=== PATIENT | male | born 1970 | race Two or more races ===

== ENCOUNTER 2018-07-23 18:01 | Emergency (ER) | payer OTHER ==
[~2018-07-23] VITALS: Ht 170.2 cm; Wt 68.0 kg
[2018-07-23] MEDS ORDERED: SODIUM CHLORIDE 0.9% 1,000 ML IV ONE ×2 (19:18→21:57)
[2018-07-23] MEDS ORDERED: ONDANSETRON HCL 4MG/2ML INJ IV STA (19:18)
[2018-07-23] MEDS ORDERED: MORPHINE SULFATE 4 MG/ML CPJ (NOT FOR IM USE) IV STA (19:18)
[2018-07-23 19:38] LABS: CHLORIDE 109 mEq/L (98-107)
[2018-07-23 19:43] LABS: BASOPHILS % 0.1 % (0.0-2.0); HEMATOCRIT. 45.4 % (42.0-52.0); HEMOGLOBIN. 15.1 g/dL (14.0-18.0); MEAN CORPUSCULAR HEMOGLOBIN 29.9 pg (28.0-32.0); MEAN CORPUSCULAR VOLUME 89.9 fL (80.0-94.0); MEAN PLATELET VOLUME 8.5 fl (7.4-10.4); MONOCYTES % 3.7 % (2.0-8.0); NEUTROPHILS % 88.2 % (40.0-76.0); PLATELET 237 x1000/uL (130-400); RED BLOOD CELL COUNT 5.05 mill/uL (4.7-6.1); RED CELL DISTRIBUTION WIDTH 14.2 % (11.6-14.6)
[2018-07-23] MEDS ORDERED: IOHEXOL-300 100 ML BOTTLE ONE (20:23)
[2018-07-23 21:47] LABS: CLARITY URINE CLEAR (CLEAR); COLOR URINE YELLOW (YELLOW); KETONES URINE 1+ (NEGATIVE); LEUKOCYTE ESTERASE URINE NEGATIVE (NEGATIVE); NITRITE URINE NEGATIVE (NEGATIVE); OCCULT BLOOD URINE 3+ (NEGATIVE); PH URINE 7.5 (4.5-8.0); PROTEIN URINE NEGATIVE (NEGATIVE); UROBILINOGEN URINE 0.2 E.U./dL (0.2-1.0)
[2018-07-23] MEDS ORDERED: KETOROLAC 30MG/ML VIAL IV STA (21:57)
[2018-07-23 23:31] VITALS: BP 153/72
== END 2018-07-23 23:32 | disposition home or self-care (01) ==
LOC: ER 18:01
DX: N20.0 Calculus of kidney (principal)
CPT/HCPCS: 36415; 74177; 80053; 81003; 83690; 85025; 85610; 87086; 96361; 96374; 96375; 99284; J1885; J2270; J2405; J7030; Q9967